=== PATIENT | female | born 1985 | race Caucasian/White ===

== ENCOUNTER 2019-01-03 13:19 | Emergency (ER) | payer OTHER ==
[~2019-01-03] VITALS: Ht 160 cm; Wt 52.2 kg
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
--- NOTE | 2019-01-03 14:15 | NUR ---
PATIENT BEING SEEN AT THIS TIME BY DOCTOR WALLACE.
[2019-01-03] MEDS ORDERED: ONDANSETRON ODT 4 MG TAB.RAPDIS ONE (14:29)
[2019-01-03] MEDS ORDERED: ONDANSETRON ODT 4 MG TAB.RAPDIS SL ONE (14:30)
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
--- NOTE | 2019-01-03 15:16 | NUR ---
REVIEWED DISCHARGE PAPERWORK AND SIGNED. DOCTOR WALLACE ALREADY SPOKE TO PATIENT RESULTS OF CT SCAN.
== END 2019-01-03 15:25 | disposition home or self-care (01) ==
LOC: ER 13:19
DX: S06.0X0A Concussion without loss of consciousness, initial encounter (principal); V49.49XA Driver injured in collision with other motor vehicles in traffic accident, initial encounter; Y93.89 Activity, other specified; Y92.89 Other specified places as the place of occurrence of the external cause; Y99.8 Other external cause status
CPT/HCPCS: 70450; 72125; A4663; Q0162